=== PATIENT | female | born 1970 | race Asian ===

== ENCOUNTER 2021-01-07 07:58 | Day surgery (SDC) | payer MEDICAID, SELFPAY ==
[~2021-01-07] VITALS: Ht 160 cm; Wt 56.7 kg
[2021-01-07] MEDS ORDERED: MIDAZOLAM HCL 5 MG/5 ML VIAL ONE ×2 (08:15→10:06)
[2021-01-07] MEDS ORDERED: fentaNYL CITRATE/PF 100 MCG/2 ML AMP ONE (08:15)
[2021-01-07] MEDS ORDERED: SIMETHICONE 40 MG/0.6 ML ML ONE (08:16)
[2021-01-07] MEDS ORDERED: DIPHENHYDRAMINE INJ 50 MG/ML VIAL ONE (10:05)
[2021-01-07 12:16] VITALS: BP_SYST 108
== END 2021-01-07 12:16 | disposition home or self-care (01) ==
LOC: SDS 07:58 → SMU 08:00 → SDS 12:16
PROVIDERS: ATTEND Internal Medicine
DX: R13.10 Dysphagia, unspecified (principal); K22.2 Esophageal obstruction; K29.50 Unspecified chronic gastritis without bleeding; K21.9 Gastro-esophageal reflux disease without esophagitis; I10 Essential (primary) hypertension; Z79.899 Other long term (current) drug therapy; Z20.822 Contact with and (suspected) exposure to COVID-19
CPT/HCPCS: 36415; 43239; 43249; 87081; 88305; 88312; 88313; 96365; 99152; G0378; J1200; J2250; J3010; U0003